=== PATIENT | female | born 1985 | race Caucasian/White ===

== ENCOUNTER 2020-12-01 12:59 | Emergency (ER) | payer OTHER ==
[2020-12-01] MEDS ORDERED: CYCLOBENZAPRINE5 MG PO (15:24)
[2020-12-01] MEDS ORDERED: NAPROSYN500 MG PO (15:24)
== END 2020-12-01 15:35 | disposition home or self-care (01) ==
LOC: ER1 12:59
DX: S16.1XXA Strain of muscle, fascia and tendon at neck level, initial encounter (principal); S29.012A Strain of muscle and tendon of back wall of thorax, initial encounter; I10 Essential (primary) hypertension; J45.909 Unspecified asthma, uncomplicated; E03.9 Hypothyroidism, unspecified; V49.40XA Driver injured in collision with unspecified motor vehicles in traffic accident, initial encounter; Y92.410 Unspecified street and highway as the place of occurrence of the external cause; Z79.899 Other long term (current) drug therapy
CPT/HCPCS: 72070; 72125; 99284